=== PATIENT | male | born 1960 | race Caucasian/White ===

== ENCOUNTER 2020-03-01 01:01 | Emergency (ER) | payer OTHER ==
--- NOTE | 2020-03-01 01:43 | EDPHYS ---
Physician Documentation [facility] Name: Janell Dvaila IV Age: 59 yrs Sex: Male : 1960 Arrival Date: 03/01/2020 Time: 01:03 Bed 13 Private MD: ED Physician Jose Luna HPI: 03/01 01:40 This 59 yrs old Male presents to ER via Ambulatory with complaints of ma2 Toothache. 01:40 The patient presents with broken tooth/teeth. Onset: The symptoms/episode ma2 began/occurred gradually, 2 day(s) ago. Associated signs and symptoms: Pertinent negatives: dysphagia, inability to eat, swelling, vomiting. Severity of symptoms: At their worst the symptoms were mild, in the emergency department the symptoms are unchanged. The patient has not experienced similar symptoms in the past. Historical: - Allergies: 01:16 No Known Allergies; sg - Home Meds: 01:16 None [Active]; sg - PMHx: 01:16 None; sg - PSHx: 01:16 Heel Spur Sx to R foot; Shoulder Sx Bilateral; sg - Immunization history:: Adult Immunizations up to date. - Social history:: Smoking status: Patient denies any tobacco usage or history of. Patient/guardian denies using alcohol, street drugs, The patient lives with spouse. - Family history:: not pertinent. ROS: 01:40 Constitutional: Negative for fever, chills, and weight loss. ma2 01:40 All other systems are negative. Exam: 01:40 Constitutional: This is a well developed, well nourished patient who is awake, alert, ma2 and in no acute distress. Head/Face: Normocephalic, atraumatic. Eyes: Pupils equal round and reactive to light, extra-ocular motions intact. Lids and lashes normal. Conjunctiva and sclera are non-icteric and not injected. Cornea within normal limits. Periorbital areas with no swelling, redness, or edema. ENT: right 2nd molar lower teeth is partially broken, gum around is red, no abscess, Nares patent. No nasal discharge, no septal abnormalities noted. Tympanic membranes are normal and external auditory canals are clear. Oropharynx with no redness, swelling, or masses, exudates, or evidence of obstruction, uvula midline. Mucous membranes moist. Neck: Trachea midline, no thyromegaly or masses palpated, and no cervical lymphadenopathy. Supple, full range of motion without nuchal rigidity, or vertebral point tenderness. No Meningismus. Chest/axilla: Normal chest wall appearance and motion. Nontender with no deformity. No lesions are appreciated. Cardiovascular: Regular rate and rhythm with a normal S1 and S2. No gallops, murmurs, or rubs. Normal PMI, no JVD. No pulse deficits. Respiratory: Lungs have equal breath sounds bilaterally, clear to auscultation and percussion. No rales, rhonchi or wheezes noted. No increased work of breathing, no retractions or nasal flaring. Abdomen/GI: Soft, non-tender, with normal bowel sounds. No distension or tympany. No guarding or rebound. No evidence of tenderness throughout. Vital Signs: 01:06 Weight 121.11 kg; Height 6 ft. 0 in. (182.88 cm); sg 01:16 BP 151 / 82; Pulse 57; Resp 18 S; Temp 98.7(TE); Pulse Ox 97% on R/A; jd3 01:06 Body Mass Index 36.21 (121.11 kg, 182.88 cm) sg MDM: 01:33 Patient medically screened. ma2 01:40 Differential diagnosis: dental caries, gingivitis, dental abscess, pericoronitis, ma2 aphthous ulcers, gingivostomatitis. Data reviewed: vital signs, nurses notes. Counseling: I had a detailed discussion with the patient and/or guardian regarding: the historical points, exam findings, and any diagnostic results supporting the discharge/admit diagnosis, the presence of at least one elevated blood pressure reading (>120/80) during this emergency department visit, the need for outpatient follow up. Response to treatment: the patient's symptoms have markedly improved after treatment. Administered Medications: 01:49 Drug: TORadol 60 mg Route: IM; Site: right gluteus; jd3 02:06 Follow up: Response: No adverse reaction jd3 01:49 Drug: Augmentin 875 mg Route: PO; jd3 02:06 Follow up: Response: No adverse reaction jd3 Disposition: 03/01/20 01:42 Discharged to Home. Impression: Dental caries. - Condition is Stable. - Discharge Instructions: Dental Pain. - Prescriptions for Augmentin 875- 125 mg Oral Tablet - take 1 tablet by ORAL route every 12 hours for 10 days; 20 tablet. Diclofenac Sodium 75 mg Oral Tablet Sustained Release - take 1 tablet by ORAL route 2 times per day; 30 tablet. - Medication Reconciliation Form, Thank You Letter, Antibiotic Education, Prescription Opioid Use form. - Follow up: Private Physician; When: Tomorrow; Reason: Recheck today's complaints, Continuance of care. Signatures: Zachery Farrell RN RN sg Davies, Jonathon, RN RN jd3 Jose Luna MD MD ma2 Corrections: (The following items were deleted from the chart) 02:06 01:42 03/01/2020 01:42 Discharged to Home. Impression: Dental caries. Condition is jd3 Stable. Forms are Medication Reconciliation Form, Thank You Letter, Antibiotic Education, Prescription Opioid Use. Follow up: Private Physician; When: Tomorrow; Reason: Recheck today's complaints, Continuance of care. ma2
--- NOTE | 2020-03-01 01:43 | ER ---
Nurse's Notes [facility] Name: Janell Davila IV Age: 59 yrs Sex: Male : 1960 Arrival Date: 03/01/2020 Time: 01:03 Bed 13 Private MD: Diagnosis: Dental caries Presentation: 03/01 01:06 Acuity: LEONIE 5 sg 01:06 Chief complaint: Patient states: Toothache on the body right lower jaw, reports has sg been seen by his dentist but was referred to a new dentist with an appointment on Monday, however the pain is too severe at this time. Coronavirus screen: Proceed with normal triage. Ebola Screen: Patient negative for fever greater than or equal to 101.5 degrees Fahrenheit, and additional compatible Ebola Virus Disease symptoms Patient denies exposure to infectious person. Patient denies travel to an Ebola-affected area in the 21 days before illness onset. No symptoms or risks identified at this time. Initial Sepsis Screen: Does the patient meet any 2 criteria? No. Patient's initial sepsis screen is negative. Does the patient have a suspected source of infection? No. Patient's initial sepsis screen is negative. Risk Assessment: Do you want to hurt yourself or someone else? Patient reports no desire to harm self or others. Onset of symptoms was March 01, 2020. Care prior to arrival: None. Transition of care: patient was not received from another setting of care. 01:06 Method Of Arrival: Ambulatory sg Historical: - Allergies: 01:16 No Known Allergies; sg - Home Meds: 01:16 None [Active]; sg - PMHx: 01:16 None; sg - PSHx: 01:16 Heel Spur Sx to R foot; Shoulder Sx Bilateral; sg - Immunization history:: Adult Immunizations up to date. - Social history:: Smoking status: Patient denies any tobacco usage or history of. Patient/guardian denies using alcohol, street drugs, The patient lives with spouse. - Family history:: not pertinent. Screenin:15 Abuse screen: Denies threats or abuse. Nutritional screening: No deficits noted. jd3 Tuberculosis screening: No symptoms or risk factors identified. Fall Risk None identified. Assessment: 01:13 General: Appears in no apparent distress. uncomfortable, Behavior is calm, cooperative, jd3 appropriate for age. Pain: Complains of pain in right side of mouth Quality of pain is described as aching, shooting. Neuro: Level of Consciousness is awake, alert, obeys commands, Oriented to person, place, time, situation. Cardiovascular: Denies chest pain, Capillary refill < 3 seconds Patient's skin is warm and dry. Respiratory: Airway is patent Respiratory effort is even, unlabored, Respiratory pattern is regular, symmetrical, Denies cough, shortness of breath. GI: No signs and/or symptoms were reported involving the gastrointestinal system. : No signs and/or symptoms were reported regarding the genitourinary system. EENT: Oral mucosa is moist. chipped tooth noted to the lower right side of mouth. Derm: Skin is intact, Skin is dry, Skin is normal, Skin temperature is warm. Musculoskeletal: Circulation, motion, and sensation intact. Range of motion: intact in all extremities. 02:03 Reassessment: Patient appears in no apparent distress at this time. Patient and/or jd3 family updated on plan of care and expected duration. Pain level reassessed. Patient is alert, oriented x 3, equal unlabored respirations, skin warm/dry/pink. Patient states feeling better. Vital Signs: 01:06 Weight 121.11 kg; Height 6 ft. 0 in. (182.88 cm); sg 01:16 BP 151 / 82; Pulse 57; Resp 18 S; Temp 98.7(TE); Pulse Ox 97% on R/A; jd3 01:06 Body Mass Index 36.21 (121.11 kg, 182.88 cm) ED Course: 01:03 Patient arrived in ED. cf2 01:06 Triage completed. sg 01:06 Arm band placed on. sg 01:13 Aristeo Hernandez, PATRICIA is Primary Nurse. jd3 01:15 Patient has correct armband on for positive identification. Bed in low position. Call jd3 light in reach. Side rails up X 1. Pulse ox on. NIBP on. 01:33 Jose Luna MD is Attending Physician. ma2 02:05 No provider procedures requiring assistance completed. Patient did not have IV access jd3 during this emergency room visit. Administered Medications: 01:49 Drug: TORadol 60 mg Route: IM; Site: right gluteus; jd3 02:06 Follow up: Response: No adverse reaction jd3 01:49 Drug: Augmentin 875 mg Route: PO; jd3 02:06 Follow up: Response: No adverse reaction jd3 Outcome: 01:42 Discharge ordered by . rj 02:05 Discharged to home ambulatory. jd3 02:05 Condition: stable 02:05 Discharge instructions given to patient, Instructed on discharge instructions, follow up and referral plans. medication usage, Demonstrated understanding of instructions, follow-up care, medications, Prescriptions given X 2. 02:06 Patient left the ED. jd3 Signatures: Zachery Farrell RN RN Aristeo Esteban RN RN jd3 Alzahri, Mohammad, MD MD ma2 Yazan Molina 2
[2020-03-01] MEDS ORDERED: AMOX/K CLAV 875 MG TAB ONE (01:52)
[2020-03-01] MEDS ORDERED: KETOROLAC 30 MG/ML INJ ONE (01:52)
[2020-03-01 02:14] VITALS: BP 151/82; TEMP 98.7; O2SAT 97
== END 2020-03-01 02:06 | disposition home or self-care (01) ==
LOC: ER 01:01
DX: K02.9 Dental caries, unspecified (principal)
CPT/HCPCS: 96372; 99283

== ENCOUNTER 2021-11-29 08:02 | Day surgery (SDC) | payer OTHER ==
[2021-11-22 09:53] LABS: Absolute Lymphocytes (CBC) 1.6 K/uL (0.7-4.9); Hematocrit 42.1 % (39.6-49.0); MPV 7.4 fL (7.6-11.3); RBC Red Blood Cell Count 5.09 M/uL (4.33-5.43)
[2021-11-22 10:12] LABS: BUN Blood Urea Nitrogen 13 mg/dL (7-18); Bicarbonate 30 mmol/L (21-32); Glucose Level 109 mg/dL (74-106); Sodium Level 139 mmol/L (136-145)
--- NOTE | 2021-11-22 10:18 | RAD REPORT ---
EXAM DESCRIPTION: Elsi Mcdaniel (2 Views)11/22/2021 9:49 am CLINICAL HISTORY: Preop for gallbladder surgery. Hypertension COMPARISON: 2009 FINDINGS: The lungs appear clear of acute infiltrate. The heart is normal size IMPRESSION: No acute abnormalities displayed
[2021-11-29] MEDS ORDERED: CEFOXITIN SODIUM 1 GM/VIAL ONE (08:20)
[2021-11-29] MEDS ORDERED: Ringers Lactate 1,000 ML IV ONE (08:20)
[2021-11-29] MEDS ORDERED: BUPIVACAINE 0.5% PF 10 ML VIAL ONE (08:27)
[2021-11-29] MEDS ORDERED: BUPIVACAINE 0.5% PF 10 ML VIAL SQ ONE ×2 (08:44)
[2021-11-29] MEDS ORDERED: ROCURONIUM 50 MG/5 ML VIAL IV ONE (08:58)
[2021-11-29] MEDS ORDERED: propofoL 200 MG/20 ML VIAL IV ONE (08:58)
[2021-11-29] MEDS ORDERED: LIDOCAINE 1% MPF 5 ML VIAL ONE (08:58)
[2021-11-29] MEDS ORDERED: MIDAZOLAM HCL 2 MG/2 ML INJ ONE (08:58)
[2021-11-29] MEDS ORDERED: FENTANYL CITR 100 MCG/2 ML ONE ×2 (08:58→09:45)
[2021-11-29] MEDS ORDERED: SCOPOLAMINE HYDROBROMIDE PATCH TD ONE (09:01)
[2021-11-29] MEDS ORDERED: NS 0.9% VIAL 10 ML ONE (09:06)
[2021-11-29] MEDS ORDERED: KETOROLAC 30 MG/ML INJ ONE (09:24)
[2021-11-29] MEDS ORDERED: dexAMETHasone 10 MG/ML VIAL ONE (09:24)
[2021-11-29] MEDS ORDERED: GLYCOPYRROLATE 0.2 MG/ML SYR ONE (09:32)
[2021-11-29] MEDS ORDERED: ONDANSETRON 4 MG/2 ML VIAL ONE (09:32)
[2021-11-29] MEDS ORDERED: NEOSTIGMINE 1 MG/ML -5 ML ONE (09:33)
[2021-11-29] MEDS ORDERED: Mastisol Adhesive Liq ONE (09:54)
--- NOTE | 2021-11-29 10:06 | P.OP ---
Independent Living Instructor: Enrique PINEDA Preoperative diagnosis: Biliary colic and gallbladder polyps Postoperative diagnosis: Same with chronic cholecystitis and extensive adhesions Primary procedure: Laparoscopic cholecystectomy Secondary procedure: Laparoscopic lysis of adhesions Anesthesia: General Estimated blood loss: Minimal Specimen: Gallbladder Operative Technique: Patient brought to the OR and placed in the supine position. Patient prepped draped in the usual sterile fashion. Marcaine 0.5% infiltrated locally. 15 blade used to make a 1 cm supraumbilical midline incision. Subcutaneous tissue divided and fascia identified and divided. #1 Vicryl stay suture placed. Peritoneal cavity entered with sharp and blunt dissection. 12 mm trocar placed into the peritoneal cavity under direct vision. Pneumoperitoneum established. 5 mm trocar placed in the epigastric region just to the right of midline. 2 5 mm trochars placed in the right subcostal region under direct vision. Laparoscopy revealed extensive adhesions to the liver and the gallbladder. LigaSure used to lyse the omental adhesions to the liver and the gallbladder. Fundus of the gallbladder identified and retracted superiorly. Infundibulum identified and retracted inferolaterally. Cystic duct cystic artery clearly identified with blunt dissection. Clips placed in both structures divided. Cautery used to remove the gallbladder from the liver bed. Bleeding on the liver bed controlled with cautery. Gallbladder retrieved through the umbilicus via Endo Catch bag. Right upper quadrant examined and no evidence of bleeding or bile leakage appreciated. Subsequently, all trochars removed under direct vision. Stay sutures tied to each other to reapproximate the fascial defect. Subcutaneous wounds irrigated bleeding controlled with cautery. 3-0 chromic used to close subcutaneous tissue and 4-0 Monocryl used to close skin. Sterile dressing applied. Patient awakened and taken to recovery in good general condition. Complications: None Transferred to: Recovery Room Condition: Good
[2021-11-29] MEDS ORDERED: HYDROCODONE/APAP 7.5/325 MG TAB PO PRN (10:08)
[2021-11-29] MEDS: HYDROMORPHONE HCL 1 MG/ML INJ ONE ×4 (10:22→10:42)
[2021-11-29 10:40] VITALS: O2SAT 96
[2021-11-29 12:06] VITALS: BP 143/90; TEMP 96.5
== END 2021-11-29 11:51 | disposition home or self-care (01) ==
LOC: OR 08:02
PROVIDERS: ATTEND Surgery
PROC: 0FT44ZZ Resection of Gallbladder, Percutaneous Endoscopic Approach (ICD-10-PCS; principal; 2021-11-29 09:00)
DX: K80.50 Calculus of bile duct without cholangitis or cholecystitis without obstruction (principal); K82.4 Cholesterolosis of gallbladder; Z20.822 Contact with and (suspected) exposure to COVID-19; I10 Essential (primary) hypertension
CPT/HCPCS: 93005; 85025; 80048; 36415; 88304; 71046; 47562; U0002; J2704; J2250; J3010 ×2; J1100; J1170 ×2; J2710; J7120; J0694; J2405

== ENCOUNTER 2024-06-27 11:27 | Emergency (ER) | payer OTHER ==
--- NOTE | 2024-06-27 12:13 | RAD REPORT ---
EXAMINATION: US RIGHT LOWER EXTREMITY VENOUS DOPPLER CLINICAL INDICATION: PAIN RIGHT TECHNIQUE: Complete bilateral duplex sonography of the RIGHT lower extremity veins was performed. The examination included compression for vein patency, color Doppler imaging and flow augmentation in response to distal compression of the distal external iliac, common femoral, femoral, popliteal, tibi al, and great and small saphenous veins. COMPARISON: No prior exam. FINDINGS: Duplex sonography testing of the veins of the RIGHT lower extremity was performed. Color flow imaging shows all veins to be compressible with [id number] color filling. Pulsatile and phasic flow is present within all lower extremity deep and superficial veins examined. IMPRESSION: There is no deep vein or superficial vein thrombosis.
--- NOTE | 2024-06-27 12:14 | RAD REPORT ---
EXAMINATION: ONE VIEW CHEST XR CLINICAL INDICATION: COUGH TECHNIQUE: Frontal chest projection is submitted. Examination is limited by patient positioning and t echnique. COMPARISON: 11/22/2021 FINDINGS: The lungs are well inflated and clear. The heart is upper limit of normal in size. No displaced fract ures identified. IMPRESSION: No acute intrathoracic abnormalities.
[2024-06-27 12:56] LABS: Absolute Eosinophils 0.1 K/uL (0-0.5); Absolute Lymphocytes (CBC) 2.1 K/uL (0.7-4.9); Absolute Monocytes 0.6 K/uL (0.1-1.3); Absolute Neutrophil 3.9 K/uL (1.8-8.0); Basophils % 0.2 % (0-1.3); Eosinophils % 2.2 % (0-4.4); Hematocrit 42.5 % (39.6-49.0); Hemoglobin 14.3 g/dL (13.6-17.9); Lymphocytes % 31.5 % (15.3-44.8); MCH 28.2 pg (27.0-35.0); MCHC 33.7 g/dL (32.0-36.0); MCV 83.9 fL (80-100); MPV 7.5 fL (7.6-11.3); Monocytes % 8.4 % (3.3-12.3); Neutrophils % 57.7 % (41.7-73.7); Platelets 267 thou/uL (152-406); RBC Red Blood Cell Count 5.07 M/uL (4.33-5.43)
[2024-06-27 12:57] LABS: Specific Gravity 1.024 (1.005-1.030); Urine Bilirubin NEGATIVE (Negative); Urine Blood Negative (Negative); Urine Clarity Clear (Clear); Urine Color Light-Yellow (Yellow); Urine Glucose NEGATIVE (Negative); Urine Ketones NEGATIVE (Negative); Urine Microscopic Reflex YN NO UMIC; Urine Nitrite NEGATIVE (Negative); Urine Protein NEGATIVE (Negative); Urine Urobilinogen Normal (Normal); Urine pH 6.5 (5.0-7.0)
[2024-06-27 13:00] LABS: PT Prothrombin Time 11.4 SECONDS (9.4-12.5); Protime INR 1.02
[2024-06-27 13:20] LABS: ALT/SGPT 22 U/L (16-61); AST/SGOT 15 U/L (15-37); Albumin 3.4 g/dL (3.4-5.0); Albumin/Globulin Ratio 0.9 (1.1-1.8); Alkaline Phosphatase 100 U/L (45-117); Anion Gap 8.8 mEq/L (5.0-15.0); BUN Blood Urea Nitrogen 18 mg/dL (7-18); Bicarbonate 30 mEq/L (21-32); Bilirubin Total 0.4 mg/dL (0.2-1.0); Globulin 3.9 g/dL (2.3-3.5); Glomerular Filtration Rate 100 ml/min (=/>90); Glucose Level 98 mg/dL (74-106); Magnesium 2.1 mg/dL (1.6-2.4); NT PRO-BNP 53 pg/mL (<125); Potassium 3.8 mEq/L (3.5-5.1); Protein, Total 7.3 g/dL (6.4-8.2); Sodium Level 140 mEq/L (136-145); Troponin High Sensitivity 5.4 pg/mL (<58.9)
[2024-06-27 13:22] LABS: Bilirubin Direct < 0.2 mg/dL (0-0.2); Bilirubin Indirect, Calculated 0.2 mg/dL (0.2-0.8)
--- NOTE | 2024-06-27 14:30 | RAD REPORT ---
EXAM: CT Chest For Pe Angio TECHNIQUE: CT angiogram of the chest was performed following intravenous contrast administration, inc luding sagittal and coronal as well as maximum intensity projection reformats. One or more of the following dose reduction techniques were used: Automated exposure control, adjustment of the mA and k V according to patient size, and iterative reconstruction. Unless otherwise specified, incidental findings do not require dedicated imaging follow-up. INDICATION: DYSPNEA COMPARISON: Chest radiograph of earlier the same day. FINDINGS: LINES/TUBES: None. PULMONARY ARTERIES: Main pulmonary arteries are normal in caliber. No filling defects within the pul monary arteries to suggest pulmonary embolus. LUNGS AND AIRWAYS: The lungs and central airways are normal without focal abnormality. PLEURA: No effusion or pneumothorax. HEART AND MEDIASTINUM: The visualized thyroid gland is normal. No mediastinal, hilar, or axillary lym phadenopathy. Heart is unremarkable. No pericardial effusion. SOFT TISSUES AND BONES: No acute osseous abnormality. No significant soft tissue finding. UPPER ABDOMEN: Status post cholecystectomy. IMPRESSION: No evidence of acute central pulmonary emboli. No suspicious intrathoracic findings..
--- NOTE | 2024-06-27 14:36 | ER ---
Nurse's Notes [facility] Name: Janell Davila IV Age: 64 yrs Sex: Male : 1960 Arrival Date: 06/27/2024 Time: 11:27 Bed 19 Private MD: Diagnosis: Acute embolism and thrombosis of other specified deep vein of left lower extremity-POPLITEAL/ LEFT CALF Presentation: 06/27 11:48 Note PATIENT NOT AVAILABLE FOR TRIAGE. SEEN BY REGISTRATION GOING TO ULTRASOUND. db 12:16 Chief complaint: Patient states: PATIENT WAS TOLD TO GET A ULTRASOUND FOR LEFT LEG PAIN db AND SWELLING. STATES WAS DIAGNOSED WITH BLOOD CLOTS IN LEG AND WAS TOLD TO COME TO ED. Coronavirus screen: Client denies travel out of the [place] in the last 14 days. At this time, the client does not indicate any symptoms associated with coronavirus-19. Ebola Screen: Patient negative for fever greater than or equal to 101.5 degrees Fahrenheit, and additional compatible Ebola Virus Disease symptoms Patient denies exposure to infectious person. Patient denies travel to an Ebola-affected area in the 21 days before illness onset. No symptoms or risks identified at this time. Initial Sepsis Screen: Does the patient meet any 2 criteria? No. Patient's initial sepsis screen is negative. Does the patient have a suspected source of infection? No. Patient's initial sepsis screen is negative. Risk Assessment: Do you want to hurt yourself or someone else? Patient reports no desire to harm self or others. Onset of symptoms was June 27, 2024. 12:16 Method Of Arrival: Wheelchair db 12:16 Acuity: LEONIE 3 db Triage Assessment: 12:18 General: Appears in no apparent distress. comfortable, Behavior is calm, cooperative. db Pain: Complains of pain in left leg. Neuro: Level of Consciousness is awake, alert, obeys commands, Oriented to person, place, time, situation. Respiratory: Airway is patent Respiratory effort is even, unlabored. Historical: - Allergies: 12:18 Lisinopril; db - PMHx: 12:18 GERD; Hypertensive disorder; db - PSHx: 12:18 Cholecystectomy; inguinal hernia repair; right ankle sx; db - Immunization history:: Adult Immunizations unknown. - Infectious Disease History:: Denies. - Social history:: Smoking status: Patient denies any tobacco usage or history of. - Family history:: not pertinent. Screenin:53 [facility] ED Fall Risk Assessment (Adult) History of falling in the last 3 months, kc6 including since admission No falls in past 3 months (0 pts) Confusion or Disorientation No (0 pts) Intoxicated or Sedated No (0 pts) Impaired Gait No (0 pts) Mobility Assist Device Used No (0 pt) Altered Elimination No (0 pt) Score/Fall Risk Level 0 - 2 = Low Risk Oriented to surroundings. Abuse screen: Denies threats or abuse. Denies injuries from another. Nutritional screening: No deficits noted. Tuberculosis screening: No symptoms or risk factors identified. Assessment: 12:53 General: Appears in no apparent distress. comfortable, well groomed, well developed, kc6 Behavior is calm, cooperative, appropriate for age. Pain: Complains of pain in left foot. Neuro: Level of Consciousness is awake, alert, obeys commands, Oriented to person, place, time, situation, Appropriate for age. Cardiovascular: Denies chest pain, shortness of breath, Capillary refill < 3 seconds Pulses are all present. Respiratory: Airway is patent Trachea midline Respiratory effort is even, unlabored, Respiratory pattern is regular, symmetrical. GI: No signs and/or symptoms were reported involving the gastrointestinal system. : No signs and/or symptoms were reported regarding the genitourinary system. EENT: No signs and/or symptoms were reported regarding the EENT system. Derm: No signs and/or symptoms reported regarding the dermatologic system. Skin is intact, is healthy with good turgor, Skin is pink, warm \T\ dry. Musculoskeletal: Circulation, motion, and sensation intact. Capillary refill < 3 seconds, Range of motion: intact in all extremities, Swelling present in left foot. 14:01 Reassessment: Patient appears in no apparent distress at this time. No changes from kc6 previously documented assessment. Patient and/or family updated on plan of care and expected duration. Pain level reassessed. Patient is alert, oriented x 3, equal unlabored respirations, skin warm/dry/pink. 15:11 Reassessment: Patient appears in no apparent distress at this time. No changes from kc6 previously documented assessment. Patient and/or family updated on plan of care and expected duration. Pain level reassessed. Patient is alert, oriented x 3, equal unlabored respirations, skin warm/dry/pink. Vital Signs: 12:16 BP 142 / 94; Pulse 72; Resp 18; Temp 98.5; Pulse Ox 97% ; Weight 122.47 kg; Height 6 db ft. 0 in. ; Pain 2/10; 12:53 BP 141 / 92; Pulse 66; Resp 16 S; Pulse Ox 98% on R/A; kc6 14:01 BP 142 / 82; Pulse 70; Resp 18 S; Pulse Ox 97% on R/A; kc6 12:16 Body Mass Index 36.62 (122.47 kg, 182.88 cm) db 12:16 Pain Scale: Adult db ED Course: 11:29 Patient arrived in ED. mr 11:33 Naveen Alvarado MD is Attending Physician. adelso 11:40 Patient taken to ultrasound. db 11:50 US Extremity Venous Unilateral Ltd In Process Unspecified. EDMS 12:05 XRAY Chest (1 view) In Process Unspecified. EDMS 12:18 Triage completed. db 12:20 Arm band placed on right wrist. Patient placed in an exam room. db 12:24 Sydney Atkins, RN is Primary Nurse. kc6 12:52 Inserted saline lock: 20 gauge in right antecubital area, using aseptic technique. kc6 Blood collected. Flushed with 10 mL NS. Patient maintains SpO2 saturation greater than 95% on room air. 12:53 Patient has correct armband on for positive identification. Placed in gown. Bed in low kc6 position. Call light in reach. Side rails up X2. Adult w/ patient. vehicle monitor technician on. Pulse ox on. NIBP on. Door closed. Noise minimized. Lights dimmed. Pillow given. 13:37 CT Chest For PE Angio In Process Unspecified. EDMS 14:34 Jamie Sewell MD is Referral Physician. adelso 15:11 No provider procedures requiring assistance completed. IV discontinued, intact, kc6 bleeding controlled, No redness/swelling at site. Pressure dressing applied. Administered Medications: 15:11 Drug: Eliquis PO 10 mg PO once Route: PO; kc6 15:11 Follow up: Response: No adverse reaction kc6 Medication: 15:12 VIS not applicable for this client. kc6 Outcome: 14:35 Discharge ordered by . adelso 15:11 Discharged to home ambulatory, with significant other, kc6 15:11 Condition: good 15:11 Discharge instructions given to patient, significant other, Instructed on discharge instructions, follow up and referral plans. medication usage, Demonstrated understanding of instructions, follow-up care, medications, Prescriptions given X 1, 15:12 Patient left the ED. kc6 Signatures: Dispatcher [employer] EDMS Naveen Alvarado MD MD cha Rivera, Ivy, Reg Reg mr Sydney Atkins RN RN kc6 Valarie Bazan RN RN db Corrections: (The following items were deleted from the chart) 14:04 14:01 Pulse 70bpm; Resp 18bpm; Spontaneous; Pulse Ox 97% RA; kc6 kc6
--- NOTE | 2024-06-27 14:36 | EDPHYS ---
Physician Documentation [facility] Name: Janell Davila IV Age: 64 yrs Sex: Male : 1960 Arrival Date: 06/27/2024 Time: 11:27 Bed 19 Private MD: ED Physician Naveen Alvarado HPI: 06/27 14:24 This 64 yrs old Male presents to ER via Wheelchair with complaints of Blood adelso Clot. 14:24 The patient presents with decreased range of motion, pain, swelling, tenderness. The adelso complaints affect the lateral aspect of left calf, posterior aspect of left knee, left calf, medial aspect of left knee, medial aspect of left calf, left knee and left frank. Context: The problem was sustained at an unknown site. Onset: The symptoms/episode began/occurred 5 day(s) ago. Modifying factors: The symptoms are alleviated by nothing. the symptoms are aggravated by nothing. Associated signs and symptoms: The patient has no apparent associated signs or symptoms. Severity of symptoms: At their worst the symptoms were moderate, in the emergency department the symptoms are unchanged. The patient has not experienced similar symptoms in the past. Historical: - Allergies: 12:18 Lisinopril; db - PMHx: 12:18 GERD; Hypertensive disorder; db - PSHx: 12:18 Cholecystectomy; inguinal hernia repair; right ankle sx; db - Immunization history:: Adult Immunizations unknown. - Infectious Disease History:: Denies. - Social history:: Smoking status: Patient denies any tobacco usage or history of. - Family history:: not pertinent. ROS: 14:24 Constitutional: Negative for fever, chills, and weight loss, Eyes: Negative for injury, adelso pain, redness, and discharge, ENT: Negative for injury, pain, and discharge, Neck: Negative for injury, pain, and swelling, Cardiovascular: Negative for chest pain, palpitations, and edema, Respiratory: Negative for shortness of breath, cough, wheezing, and pleuritic chest pain, Abdomen/GI: Negative for abdominal pain, nausea, vomiting, diarrhea, and constipation, Back: Negative for injury and pain, : Negative for injury, bleeding, discharge, and swelling, Skin: Negative for injury, rash, and discoloration, Neuro: Negative for headache, weakness, numbness, tingling, and seizure, Psych: Negative for depression, anxiety, suicide ideation, homicidal ideation, and hallucinations, Allergy/Immunology: Negative for hives, rash, and allergies, Endocrine: Negative for neck swelling, polydipsia, polyuria, polyphagia, and marked weight changes, Hematologic/Lymphatic: Negative for swollen nodes, abnormal bleeding, and unusual bruising, 14:24 MS/extremity: Positive for pain, swelling, tenderness, of the left leg, Exam: 14:24 Constitutional: This is a well developed, well nourished patient who is awake, alert, adelso and in no acute distress. Head/Face: Normocephalic, atraumatic. Eyes: Pupils equal round and reactive to light, extra-ocular motions intact. Lids and lashes normal. Conjunctiva and sclera are non-icteric and not injected. Cornea within normal limits. Periorbital areas with no swelling, redness, or edema. ENT: Nares patent. No nasal discharge, no septal abnormalities noted. Tympanic membranes are normal and external auditory canals are clear. Oropharynx with no redness, swelling, or masses, exudates, or evidence of obstruction, uvula midline. Mucous membranes moist. Neck: Trachea midline, no thyromegaly or masses palpated, and no cervical lymphadenopathy. Supple, full range of motion without nuchal rigidity, or vertebral point tenderness. No Meningismus. Chest/axilla: Normal chest wall appearance and motion. Nontender with no deformity. No lesions are appreciated. Cardiovascular: Regular rate and rhythm with a normal S1 and S2. No gallops, murmurs, or rubs. Normal PMI, no JVD. No pulse deficits. Respiratory: Lungs have equal breath sounds bilaterally, clear to auscultation and percussion. No rales, rhonchi or wheezes noted. No increased work of breathing, no retractions or nasal flaring. Abdomen/GI: Soft, non-tender, with normal bowel sounds. No distension or tympany. No guarding or rebound. No evidence of tenderness throughout. Back: No spinal tenderness. No costovertebral tenderness. Full range of motion. Male : Normal genitalia with no discharge or lesions. Skin: Warm, dry with normal turgor. Normal color with no rashes, no lesions, and no evidence of cellulitis. Neuro: Awake and alert, GCS 15, oriented to person, place, time, and situation. Cranial nerves II-XII grossly intact. Motor strength 5/5 in all extremities. Sensory grossly intact. Cerebellar exam normal. Normal gait. Psych: Awake, alert, with orientation to person, place and time. Behavior, mood, and affect are within normal limits. 14:24 Musculoskeletal/extremity: ROM: no acute changes, intact in all extremities, full active range of motion, full passive range of motion, Circulation is intact in all extremities. Sensation intact. Compartment Syndrome exam of affected extremity: is normal. Weight bearing: able to fully bear weight, DVT Exam: negative Homans' sign noted on exam, no appreciated bluish discoloration, no erythema, no increased warmth, pain, swelling, tenderness, 14:27 ECG was reviewed by the Attending Physician. [facility] Vital Signs: 12:16 BP 142 / 94; Pulse 72; Resp 18; Temp 98.5; Pulse Ox 97% ; Weight 122.47 kg; Height 6 db ft. 0 in. ; Pain 2/10; 12:53 BP 141 / 92; Pulse 66; Resp 16 S; Pulse Ox 98% on R/A; kc6 14:01 BP 142 / 82; Pulse 70; Resp 18 S; Pulse Ox 97% on R/A; kc6 12:16 Body Mass Index 36.62 (122.47 kg, 182.88 cm) db 12:16 Pain Scale: Adult db MDM: 11:33 Medical Screening Exam initiated [facility] 12:17 Medical Screening Exam initiated [facility] 14:26 Differential diagnosis: closed fracture, contusion, abrasion, tendonitis. Data [facility] reviewed: vital signs, nurses notes, lab test result(s), EKG, radiologic studies, CT scan, doppler, plain films. Consideration of Admission/Observation Escalation of care including admission/observation considered. I considered the following discharge prescriptions or medication management in the emergency department Medications were administered in the Emergency Department. See MAR. Independent interpretation of the following test(s) in the Emergency Department EKG: See my EKG interpretation above. Test considered but Not performed: MRI: NO MRI NEEDED. 06/27 11:36 Order name: Basic Metabolic Panel; Complete Time: 14:13 [facility] 06/27 11:36 Order name: CBC with Diff; Complete Time: 14:13 [facility] 06/27 11:36 Order name: LFT's; Complete Time: 14:13 06/27 11:36 Order name: Magnesium; Complete Time: 14:13 06/27 11:36 Order name: NT PRO-BNP; Complete Time: 14:13 [facility] 06/27 11:36 Order name: PT-INR; Complete Time: 14:13 06/27 11:36 Order name: Troponin HS; Complete Time: 14:13 06/27 11:36 Order name: Urinalysis w/ reflexes; Complete Time: 14:13 [facility] 06/27 11:36 Order name: XRAY Chest (1 view); Complete Time: 14:13 [place] 06/27 11:36 Order name: CT Chest For PE Angio 06/27 11:36 Order name: US Extremity Venous Unilateral Ltd; Complete Time: 14:13 [facility] 06/27 11:36 Order name: EKG; Complete Time: 11:37 [facility] 06/27 11:36 Order name: Cardiac monitoring; Complete Time: 12:52 [facility] 06/27 11:36 Order name: EKG - Nurse/Tech; Complete Time: 12:52 [facility] 06/27 11:36 Order name: IV Saline Lock; Complete Time: 12:52 [facility] 06/27 11:36 Order name: Labs collected and sent; Complete Time: 12:52 [facility] 06/27 11:36 Order name: O2 Per Protocol; Complete Time: 12:29 [facility] 06/27 11:36 Order name: O2 Sat Monitoring; Complete Time: 12:29 [facility] EC:27 Rate is 68 beats/min. Rhythm is regular. QRS [place] is Normal. [place] interval is normal. QRS [place]so interval is normal. QT interval is normal. No Q waves. T waves are Normal. No ST changes noted. Clinical impression: NSR w/ Non-specific ST/T Changes and No evidence of ischemia. Interpreted by me. Reviewed by me. Administered Medications: 15:11 Drug: Eliquis PO 10 mg PO once Route: PO; kc6 15:11 Follow up: Response: No adverse reaction kc6 Disposition Summary: 06/27/24 14:35 Discharge Ordered Notes: Location: Home adelso Problem: new adelso Symptoms: have improved adelso Condition: Stable adelso Diagnosis - Acute embolism and thrombosis of other specified deep vein of left lower extremity adelso - POPLITEAL/ LEFT CALF Followup: adelso - With: Private Physician - When: 2 - 3 days - Reason: Recheck today's complaints, Continuance of care, Re-evaluation by your physician Followup: adelso - With: Jamie Sewell MD - When: 5 - 6 days - Reason: Recheck today's complaints, Re-evaluation by your physician Discharge Instructions: - Discharge Summary Sheet adelso - Deep Vein Thrombosis [facility] Forms: - Medication Reconciliation Form adelso - Antibiotic Education adelso - Prescription Opioid Use adelso - Patient Portal Instructions [facility] - Leadership Thank You Letter [facility] Prescriptions: - Eliquis DVT-PE Treat 30D Start 5 mg (74 tabs) Oral Tablet, Dose Pack - take 1 tablet ORAL route every 12 hours 1O MG PO BID X 7 DAYS THE 5 MG PO BIB X adelso 3 MONTHS; 74 tablet; Refills: 0, Product Selection Permitted Signatures: Dispatcher [employer] EDNaveen Orourke MD MD cha Campbell, Kaitlyn, RN RN kc6 Valarie Bazan RN RN db Corrections: (The following items were deleted from the chart) 11:37 11:37 Extremity Venous Uni [email or web address] ordered. EDMS EDMS
[2024-06-27] MEDS ORDERED: APIXABAN 5 MG TABLET ONE (14:55)
[2024-06-27 20:06] VITALS: TEMP 98.5
[2024-06-27 20:08] VITALS: BP 142/82; O2SAT 97
--- NOTE | 2024-06-28 14:15 | EKG ---
Test Date: 2024-06-27 Test Time: 12:40:00 Integration Technician: ARI MEASUREMENT RESULTS: Intervals: Rate: 68 IL: 174 QRSD: 82 QT: 402 QTc: 427 [place]: P: 69 IL: 174 QRS: 50 T: 38 INTERPRETIVE STATEMENTS: Sinus rhythm with premature atrial complexes Low voltage QRS Borderline ECG Compared to ECG 11/22/2021 08:32:45 No significant changes Electronically Signed On 06-28-24 14:12:29 CDT by Philipp Garcia
== END 2024-06-27 15:12 | disposition home or self-care (01) ==
LOC: ER 11:27
DX: I82.432 Acute embolism and thrombosis of left popliteal vein (principal); I10 Essential (primary) hypertension
CPT/HCPCS: 93005; 85025; 80048; 36415; 83735; 85610; 80076; 81003; 84484; 83880; 71275; 71045; 93971; 99285; Q9967

== ENCOUNTER 2024-07-08 19:03 | Observation (INO) | payer OTHER ==
[2024-07-08 19:44] LABS: Absolute Eosinophils 0.1 K/uL (0-0.5); Absolute Lymphocytes (CBC) 2.6 K/uL (0.7-4.9); Absolute Monocytes 0.7 K/uL (0.1-1.3); Absolute Neutrophil 4.2 K/uL (1.8-8.0); Basophils % 0.4 % (0-1.3); Eosinophils % 1.5 % (0-4.4); Hematocrit 43.7 % (39.6-49.0); Hemoglobin 14.9 g/dL (13.6-17.9); Lymphocytes % 34.2 % (15.3-44.8); MCHC 34.1 g/dL (32.0-36.0); MCV 82.3 fL (80-100); MPV 7.4 fL (7.6-11.3); Monocytes % 9.3 % (3.3-12.3); Neutrophils % 54.6 % (41.7-73.7); Platelets 274 thou/uL (152-406); RBC Red Blood Cell Count 5.31 M/uL (4.33-5.43); Red Cell Distribution Width 13.9 % (12.1-15.2)
[2024-07-08 19:50] LABS: PT Prothrombin Time 13.3 SECONDS (9.4-12.5); Protime INR 1.19
--- NOTE | 2024-07-08 20:03 | RAD REPORT ---
Procedure: Chest Single View HISTORY: Chest pain COMPARISON: June 27, 2024 FINDINGS: The lungs appear clear of acute infiltrate. No significant pleural effusion noted. The heart is normal size. IMPRESSION: No acute abnormality is displayed.
[2024-07-08 20:10] LABS: ALT/SGPT 27 U/L (16-61); AST/SGOT 17 U/L (15-37); Albumin 3.5 g/dL (3.4-5.0); Albumin/Globulin Ratio 0.9 (1.1-1.8); Alkaline Phosphatase 102 U/L (45-117); Anion Gap 9.5 mEq/L (5.0-15.0); BUN Blood Urea Nitrogen 18 mg/dL (7-18); Bicarbonate 27 mEq/L (21-32); Bilirubin Total 0.4 mg/dL (0.2-1.0); Glomerular Filtration Rate 52 ml/min (=/>90); Glucose Level 141 mg/dL (74-106); Magnesium 2.1 mg/dL (1.6-2.4); NT PRO-BNP 28 pg/mL (<125); Potassium 3.5 mEq/L (3.5-5.1); Protein, Total 7.5 g/dL (6.4-8.2); Sodium Level 136 mEq/L (136-145); Troponin High Sensitivity 4.6 pg/mL (<58.9)
[2024-07-08 20:16] LABS: Bilirubin Direct < 0.2 mg/dL (0-0.2); Bilirubin Indirect, Calculated 0.2 mg/dL (0.2-0.8)
[2024-07-08] MEDS ORDERED: ASPIRIN 81 MG CHEWABLE TABLET ONE (20:54)
--- NOTE | 2024-07-08 21:13 | RAD REPORT ---
EXAMINATION: CTA CHEST PE CLINICAL INDICATION: Chest pain TECHNIQUE: 100 cc 370 Isovue administered intravenously. This examination was performed according to an angiographic protocol with 3D post-processing. This involves 3D reconstructions, MIPs, volume rendered images and/or shaded surface rendering. One or more of the following dose reduction techniqu es were used: Automated exposure control, adjustment of the mA and/or kV according to patient size, and/or iterative reconstruction. Unless otherwise specified, incidental findings do not require dedic ated imaging follow-up. [id number]. COMPARISON: June 2024 FINDINGS: A pulmonary embolus is not seen. An aortic aneurysm not noted. No pleural effusion. No pericardial effusion. Lungs are clear. IMPRESSION: No evidence of a pulmonary embolism
--- NOTE | 2024-07-08 21:34 | ER ---
Nurse's Notes [facility] Name: Janell Davila IV Age: 64 yrs Sex: Male : 1960 Arrival Date: 07/08/2024 Time: 19:03 Bed 5 Private MD: Diagnosis: Chest pain, unspecified Presentation: 07/08 19:18 Chief complaint: Patient states: Chest pain to the left side of his chest onset at cm10 approximately 1800. PT states that the pain radiates to back and describes the pain "like some one is pushing on my chest." pt diagnosed with DVT last week and is taking Eliquis. Coronavirus screen: Client denies travel out of the [place] in the last 14 days. Ebola Screen: Patient denies travel to an Ebola-affected area in the 21 days before illness onset. No symptoms or risks identified at this time. Initial Sepsis Screen: Does the patient meet any 2 criteria? No. Patient's initial sepsis screen is negative. Does the patient have a suspected source of infection? No. Patient's initial sepsis screen is negative. Risk Assessment: Do you want to hurt yourself or someone else? Patient reports no desire to harm self or others. Onset of symptoms was July 08, 2024. 19:18 Method Of Arrival: Ambulatory cm10 19:18 Acuity: LEONIE 2 cm10 Triage Assessment: 19:24 General: Appears in no apparent distress. comfortable, Behavior is calm, cooperative. cm10 Neuro: No deficits noted. Level of Consciousness is awake, alert, obeys commands, Oriented to person, place, time, situation, Appropriate for age. Respiratory: No deficits noted. Airway is patent Respiratory effort is even, unlabored, Respiratory pattern is regular, symmetrical. Historical: - Allergies: 19:21 Lisinopril; cm10 - Home Meds: 19:21 famotidine 20 mg oral tablet [Active]; hydrochlorothiazide 25 mg Oral tablet [Active]; cm10 aspirin 81 mg Oral tablet,chewable [Active]; colestipol 1 gram oral tablet [Active]; Eliquis 5 mg oral tablet [Active]; - PMHx: 19:21 GERD; Hypertensive disorder; DVT; cm10 - PSHx: 19:21 Cholecystectomy; inguinal hernia repair; right ankle sx; cm10 - Immunization history:: Adult Immunizations up to date. - Infectious Disease History:: Denies. - Social history:: Smoking status: Patient denies any tobacco usage or history of. Screenin:39 [facility] ED Fall Risk Assessment (Adult) History of falling in the last 3 months, lg3 including since admission No falls in past 3 months (0 pts) Confusion or Disorientation No (0 pts) Intoxicated or Sedated No (0 pts) Impaired Gait No (0 pts) Mobility Assist Device Used No (0 pt) Altered Elimination No (0 pt) Score/Fall Risk Level 0 - 2 = Low Risk Oriented to surroundings, Maintained a safe environment, Educated pt \\T\\ family on fall prevention, incl call for assistance when getting out of bed, Assessed \\T\\ reinforced patient's understanding of fall precautions. Abuse screen: Denies threats or abuse. Denies injuries from another. Nutritional screening: No deficits noted. Tuberculosis screening: No symptoms or risk factors identified. Assessment: 19:39 General: Appears in no apparent distress. comfortable, Behavior is calm, cooperative. lg3 Pain: Complains of pain in chest Pain radiates to back Pain currently is 2 out of 10 on a pain scale. Quality of pain is described as pressure, Pain began 3 hours ago. Neuro: No deficits noted. [place] Agitation-Sedation Scale (RASS): 0 - Alert and Calm Level of Consciousness is awake, alert, obeys commands, Oriented to person, place, time, situation. Cardiovascular: Reports chest pain, Denies shortness of breath, Heart tones S1 S2 present Capillary refill < 3 seconds Clubbing of nail beds is absent JVD is absent Patient's skin is warm and dry. Respiratory: No deficits noted. Airway is patent Respiratory effort is even, unlabored, Respiratory pattern is regular, symmetrical. GI: No deficits noted. No signs and/or symptoms were reported involving the gastrointestinal system. : No signs and/or symptoms were reported regarding the genitourinary system. EENT: No deficits noted. No signs and/or symptoms were reported regarding the EENT system. Derm: No deficits noted. No signs and/or symptoms reported regarding the dermatologic system. Skin is intact, is healthy with good turgor, Skin is dry, Skin is normal, Skin temperature is warm. Musculoskeletal: No deficits noted. No signs and/or symptoms reported regarding the musculoskeletal system. Circulation, motion, and sensation intact. Range of motion: intact in all extremities. 21:29 Reassessment: Patient appears in no apparent distress at this time. No changes from lg3 previously documented assessment. Patient and/or family updated on plan of care and expected duration. Pain level reassessed. Patient is alert, oriented x 3, equal unlabored respirations, skin warm/dry/pink. Vital Signs: 19:18 BP 137 / 91; Pulse 82; Resp 18; Temp 98.3(TE); Pulse Ox 96% on R/A; Weight 117.93 kg; cm10 Height 6 ft. 0 in. ; Pain 3/10; 21:29 BP 135 / 93; Pulse 73; Resp 16 S; Pulse Ox 97% on R/A; lg3 22:35 BP 134 / 88; Pulse 68; Resp 17 S; Pulse Ox 97% on R/A; lg3 19:18 Body Mass Index 35.26 (117.93 kg, 182.88 cm) cm10 19:18 Pain Scale: Adult cm10 ED Course: 19:05 Patient arrived in ED. mr 19:21 Triage completed. cm10 19:22 Naveen Casey PA is PHCP. cp 19:22 Naveen Alvarado MD is Attending Physician. cp 19:23 Arm band placed on right wrist. Patient placed in waiting room. EKG completed in cm10 triage. Results shown to MD. 19:23 EKG done, by ED staff, reviewed by Naveen BLANC. cm10 19:39 Tomasa Redding, RN is Primary Nurse. lg3 19:39 Patient has correct armband on for positive identification. Placed in gown. Bed in low lg3 position. Call light in reach. Side rails up X 1. Client placed on continuous cardiac and pulse oximetry monitoring. NIBP monitoring applied. equipment monitor phototypesetting on. Door closed. Noise minimized. Warm blanket given. Pillow given. Family accompanied patient. 19:39 Inserted saline lock: 20 gauge in right antecubital area, using aseptic technique. lg3 Blood collected. Flushed with 10 mL NS. Patient maintains SpO2 saturation greater than 95% on room air. 19:39 Initial lab(s) drawn, by me, sent to lab. lg3 19:41 Ptt, Activated Sent. lg3 19:42 XRAY Chest (1 view) In Process Unspecified. EDMS 19:42 Basic Metabolic Panel Sent. lg3 19:42 CBC with Diff Sent. lg3 19:42 LFT's Sent. lg3 19:42 Magnesium Sent. lg3 19:42 NT PRO-BNP Sent. lg3 19:42 PT-INR Sent. lg3 19:42 Troponin HS Sent. lg3 20:07 Samy Yang MD is Attending Physician. cp 21:09 CT Chest For PE Angio In Process Unspecified. EDMS 21:33 Connor Wen MD is Hospitalizing Provider. cp 23:32 No provider procedures requiring assistance completed. Patient admitted, IV remains in lg3 place. Administered Medications: 20:55 Drug: Aspirin PO Chewable Tablet 324 mg PO once; 81 mg tablets x 4 Route: PO; lg3 23:32 Follow up: Response: No adverse reaction lg3 Medication: 22:35 VIS not applicable for this client. lg3 Outcome: 21:34 Decision to Hospitalize by Provider. cp 23:32 Admitted to Med/surg accompanied by tech, via wheelchair, lg3 23:32 Condition: stable 23:32 Instructed on the need for admit, Demonstrated understanding of instructions, 23:33 Patient left the ED. lg3 Signatures: Dispatcher [employer] EDMS Ivy Hillman, Reg Reg mr Naveen Casey PA PA Tomasa Daniel, RN RN lg3 Chiquis Rodriguez, RN RN cm10
--- NOTE | 2024-07-08 21:34 | EDPHYS ---
Physician Documentation [facility] Name: Janell Davila IV Age: 64 yrs Sex: Male : 1960 Arrival Date: 07/08/2024 Time: 19:03 Bed 5 Private MD: ED Physician Samy Yang HPI: 07/08 19:30 This 64 yrs old Male presents to ER via Ambulatory with complaints of Chest Pain. cp 19:30 The patient or guardian reports chest pain that is located primarily in the anterior cp chest wall, left. Onset: today, about 1800. 19:30 The pain radiates to left back. Associated signs and symptoms: Pertinent positives: cp shortness of breath. The chest pain is described as like someone pushing on chest. Duration: The patient or guardian reports a single episode, that is now resolved. Severity of pain: in the emergency department the pain has resolved and did so earlier today. 19:30 Patient reports being recently diagnosed with DVT and that he takes prescribed Eliquis cp twice daily. Historical: - Allergies: 19:21 Lisinopril; cm10 - Home Meds: 19:21 famotidine 20 mg oral tablet [Active]; hydrochlorothiazide 25 mg Oral tablet [Active]; cm10 aspirin 81 mg Oral tablet,chewable [Active]; colestipol 1 gram oral tablet [Active]; Eliquis 5 mg oral tablet [Active]; - PMHx: 19:21 GERD; Hypertensive disorder; DVT; cm10 - PSHx: 19:21 Cholecystectomy; inguinal hernia repair; right ankle sx; cm10 - Immunization history:: Adult Immunizations up to date. - Infectious Disease History:: Denies. - Social history:: Smoking status: Patient denies any tobacco usage or history of. ROS: 19:35 Cardiovascular: Positive for chest pain, edema, Negative for palpitations, cp 19:35 Eyes: Negative for injury, pain, redness, and discharge, cp 19:35 Constitutional: Negative for body aches, chills, fever, poor PO intake, 19:35 ENT: Negative for drainage from ear(s), ear pain, sore throat, difficulty swallowing, difficulty handling secretions, 19:35 Respiratory: Positive for shortness of breath, Negative for cough, wheezing, 19:35 Abdomen/GI: Negative for abdominal pain, vomiting, diarrhea, constipation, 19:35 Back: Positive for radiated pain, 19:35 Neuro: Negative for altered mental status, dizziness, headache, syncope, near syncope, weakness, 19:35 All other systems are negative, Exam: 19:25 ECG was reviewed by the Attending Physician. cp 19:40 Constitutional: The patient appears in no acute distress, alert, awake, cp non-diaphoretic, non-toxic, well developed, well nourished, obese, 19:40 Head/Face: Normocephalic, atraumatic. cp 19:40 Eyes: Periorbital structures: appear normal, Conjunctiva: normal, no exudate, no injection, Sclera: no appreciated abnormality, Lids and lashes: appear normal, bilaterally, 19:40 ENT: External ear(s): are unremarkable, Nose: is normal, Mouth: Lips: moist, Oral mucosa: pink and intact, moist, Posterior pharynx: is normal, airway is patent, no erythema, no exudate, 19:40 Neck: ROM/movement: is normal, is supple, without pain, no range of motions limitations, 19:40 Chest/axilla: Inspection: normal, Palpation: crepitus, is not appreciated, tenderness, is not appreciated, 19:40 Cardiovascular: Rate: normal, Rhythm: regular, Edema: ankle edema, that is mild, JVD: is not appreciated, 19:40 Respiratory: the patient does not display signs of respiratory distress, Respirations: normal, no use of accessory muscles, no retractions, labored breathing, is not present, Breath sounds: are clear throughout, no decreased breath sounds, no stridor, no wheezing, 19:40 Abdomen/GI: Inspection: abdomen appears normal, Palpation: abdomen is soft and non-tender, in all quadrants, 19:40 Back: CVA tenderness, is absent, vertebral tenderness, is not appreciated, 19:40 Neuro: Orientation: to person, place \T\ time. Mentation: is normal, Cerebellar function: is grossly normal, Motor: moves all fours, strength is normal, Sensation: is normal, Vital Signs: 19:18 BP 137 / 91; Pulse 82; Resp 18; Temp 98.3(TE); Pulse Ox 96% on R/A; Weight 117.93 kg; cm10 Height 6 ft. 0 in. ; Pain 3/10; 21:29 BP 135 / 93; Pulse 73; Resp 16 S; Pulse Ox 97% on R/A; lg3 22:35 BP 134 / 88; Pulse 68; Resp 17 S; Pulse Ox 97% on R/A; lg3 19:18 Body Mass Index 35.26 (117.93 kg, 182.88 cm) cm10 19:18 Pain Scale: Adult cm10 MDM: 19:22 Medical Screening Exam initiated cp 21:40 Data reviewed: vital signs, nurses notes, lab test result(s), EKG, radiologic studies, cp CT scan, plain films, and as a result, I will admit patient. 21:40 Differential diagnosis: acute myocardial infarction, acute pericarditis, pancreatitis, cp pleurisy, pneumonia, pneumothorax, pulmonary embolus, stable angina, thoracic aortic disection, unstable angina. The patient was given aspirin in the Emergency Department. Management of patient was discussed with the following: Hospitalist: DR Wen will admit after discussion. I considered the following discharge prescriptions or medication management in the emergency department Medications were administered in the Emergency Department. See MAR. Independent interpretation of the following test(s) in the Emergency Department EKG: See my EKG interpretation above. Care significantly affected by the following chronic conditions: Hypertension, Obesity. Response to treatment: the patient's symptoms have mildly improved after treatment. 07/08 19:27 Order name: Basic Metabolic Panel; Complete Time: 20:30 cp 07/08 20:30 Interpretation: Normal except: GLUC 141; CRE 1.47; GFR 52. cp 07/08 19:27 Order name: CBC with Diff; Complete Time: 20:30 cp 07/08 19:27 Order name: LFT's; Complete Time: 20:30 cp 07/08 19:27 Order name: Magnesium; Complete Time: 20:30 cp 07/08 19:27 Order name: NT PRO-BNP; Complete Time: 20:30 cp 07/08 19:27 Order name: PT-INR; Complete Time: 20:30 cp 07/08 19:27 Order name: Troponin HS; Complete Time: 20:30 cp 07/08 20:30 Interpretation: Reviewed. cp 07/08 19:27 Order name: Ptt, Activated; Complete Time: 20:30 cp 07/08 22:06 Order name: Urinalysis w/ reflexes EDMS 07/08 22:06 Order name: CBC with Automated Diff EDID 07/08 22:06 Order name: CBC with Automated Diff EDID 07/08 22:06 Order name: Comprehensive Metabolic Panel EDID 07/08 22:06 Order name: Comprehensive Metabolic Panel EDID 07/08 22:06 Order name: Troponin High Sensitivity EDID 07/08 22:06 Order name: Troponin High Sensitivity EDID 07/08 22:06 Order name: Troponin High Sensitivity EDID 07/08 22:06 Order name: Troponin High Sensitivity EDID 07/08 19:27 Order name: XRAY Chest (1 view); Complete Time: 20:30 cp 07/08 20:07 Order name: CT Chest For PE Angio; Complete Time: 21:22 cp 07/08 21:22 Interpretation: Report reviewed. 07/08 22:06 Order name: Echo with Doppler EDID 07/08 19:27 Order name: EKG; Complete Time: 19:28 cp 07/08 22:06 Order name: CONS Physician Consult EDID 07/08 19:27 Order name: Cardiac monitoring; Complete Time: 19:42 cp 07/08 19:27 Order name: EKG - Nurse/Tech; Complete Time: 19:42 cp 07/08 19:27 Order name: IV Saline Lock; Complete Time: 19:42 cp 07/08 19:27 Order name: Labs collected and sent; Complete Time: 19:42 cp 07/08 19:27 Order name: O2 Per Protocol; Complete Time: 19:42 cp 07/08 19:27 Order name: O2 Sat Monitoring; Complete Time: 19:42 cp EC:25 Rate is 81 beats/min. Rhythm is regular. CO interval is normal. QRS interval is normal. cp QT interval is normal. T waves are Inverted in lead aVR. Interpreted by me. Reviewed by me. Administered Medications: 20:55 Drug: Aspirin PO Chewable Tablet 324 mg PO once; 81 mg tablets x 4 Route: PO; lg3 23:32 Follow up: Response: No adverse reaction lg3 Disposition: 07/09 20:29 Co-signature as Attending Physician, Samy Yang MD I agree with the assessment sp4 and plan of care. I reviewed the patient's care provided by the Advanced Practice Provider and agree with the diagnosis and treatment plan. Disposition Summary: 07/08/24 21:34 Hospitalization Ordered Notes: Hospitalization Status: Observation cp Provider: Connor Wen cp Location: Telemetry/MedSurg (observation) cp Condition: Stable cp Problem: new cp Symptoms: have improved cp Bed/Room Type: Standard cp Room Assignment: 204(07/08/24 22:18) vk Diagnosis - Chest pain, unspecified cp Forms: - Medication Reconciliation Form cp - SBAR form cp - Leadership Thank You Letter cp Signatures: Dispatcher [employer] EDNaveen Wheatley PA PA cp Able, Lacie RN RN lg3 Samy Yang MD MD sp4 Chiquis Rodriguez RN RN cm10 Destinee Sorensen Corrections: (The following items were deleted from the chart) 07/08 22:18 21:34 cp vk
--- NOTE | 2024-07-08 22:00 | P.HP ---
Certification for Inpatient Patient admitted to: Observation With expected LOS: <2 Midnights Practitioner: I am a practitioner with admitting privileges, knowledge of patient current condition, hospital course, and medical plan of care. Services: Services provided to patient in accordance with Admission requirements found in Title 42 Section 412.3 of the Code of Federal Regulations Patient History Date of Service: 07/08/24 Reason for admission: Chest Pain History of Present Illness: 64-year-old male with past medical history of hypertension, hyperlipidemia, history of hip surgery, recent DVT was brought to ER with chest discomfort which has been going on since this afternoon. Patient is chest pain-free at the time of interview. No fever or chills. Pain was located in retrosternal with radiation to back and left side, pressure-like feeling, not associated with any diaphoresis. Denies any shortness of breath. No nausea vomiting or diarrhea. No sick contacts. Patient was assessed in the ER and was admitted for with chest pain to rule out ACS. Patient had a CT chest PE protocol which was negative for any PE. Allergies No Known Allergies Allergy (Verified 11/22/21 09:18) Home medications list reviewed: Yes Home Medications: Aspirin [Aspirin EC 81 MG] 81 mg PO DAILY 03/17/16 Cholecalciferol (Vitamin D3) [Vitamin D3] 1,000 unit PO DAILY 03/17/16 Flaxseed Oil [Flaxseed] 1,000 mg PO DAILY 03/17/16 Multivit-Min/FA/Lycopen/Lutein [Centrum Silver Tablet] 1 each PO DAILY 03/17/16 Vitamin B Complex [B Complex] 1 each PO DAILY 03/17/16 Amlodipine Besylate [Norvasc] 2.5 mg PO DAILY 11/22/21 Ascorbic Acid [Vitamin C] 1,000 mg PO BID 11/22/21 Famotidine [Pepcid] 20 mg PO BEDTIME 11/22/21 Loratadine [Claritin] 10 mg PO DAILY 11/22/21 - Past Medical/Surgical History Past Medical History: Reviewed- Non-Contributory -: Hypertension, hyperlipidemia, DVT Past Surgical History: Reviewed- Non-Contributory -: Hip surgery - Family History Family History: Reviewed- Non-Contributory - Social History Smoking Status: Never smoker Review of Systems 10-point ROS is otherwise unremarkable Physical Examination - Vital Signs Temperature: 97.2 F Blood Pressure: 138/82 Pulse: 78 Respirations: 18 Pulse Ox (%): 94 - Physical Exam General: Alert, In no apparent distress, Oriented x3 HEENT: Atraumatic, Normocephalic Neck: Supple Respiratory: Clear to auscultation bilaterally, Normal air movement Cardiovascular: Normal pulses, Regular rate/rhythm, Normal S1 S2, Abnormal S3 Capillary refill: <2 Seconds Gastrointestinal: Soft and benign, Non-distended Musculoskeletal: No clubbing, No swelling Integumentary: No rashes Neurological: Normal speech, Normal strength at 5/5 x4 extr Lymphatics: No axilla or inguinal lymphadenopathy - Studies Laboratory Data (last 24 hrs) 07/08/24 07/08/24 07/08/24 19:37 19:37 19:37 WBC 7.70 Hgb 14.9 Hct 43.7 Plt Count 274 PT 13.3 H INR 1.19 APTT 38.0 H Sodium 136 Potassium 3.5 BUN 18 Creatinine 1.47 H Glucose 141 H Magnesium 2.1 Total Bilirubin 0.4 AST 17 ALT 27 Alkaline Phosphatase 102 Assessment and Plan - Plan Unstable Angina Will trend cardiac enzymes Will monitor telemetry Started on aspirin and statin EKG did not show any acute changes suggestive of ischemia Patient denies any chest pain at the time of interview Will get an echocardiogram Cardiology consult Hypertension Antihypertensives titrated Continue home medications and titrate as needed Hyperlipidemia Continue statin DVT Continue Eliquis CT chest negative for PE GI/DVT prophylaxis Advanced directive full code Discharge Plan: Home Plan to discharge in: 48 Hours - Advance Directives Does patient have a Living Will: No Does patient have a Durable POA for Healthcare: No - Code Status/Comfort Care Code Status: Full Code Time Spent Managing Pts Care (In Minutes): 48
[2024-07-08] MEDS ORDERED: ONDANSETRON 4 MG/2 ML VIAL IV PRN (22:01)
[2024-07-08] MEDS: NA CHLORIDE 0.9% 1,000 ML IV SCH (23:55)
[2024-07-09 00:57] VITALS: BMI 35.5
[2024-07-09 01:12] LABS: Sqamous Epithelial None Seen /HPF (None Seen); Urine Bacteria None Seen /HPF (<20); Urine Bilirubin NEGATIVE (Negative); Urine Blood Negative (Negative); Urine Clarity Clear (Clear); Urine Color Yellow (Yellow); Urine Culture Reflex Order NOT NEEDED; Urine Glucose NEGATIVE (Negative); Urine Ketones NEGATIVE (Negative); Urine Microscopic Reflex YN ORDER UMIC; Urine Mucus Slight /HPF (None Seen); Urine Nitrite NEGATIVE (Negative); Urine Protein TRACE (Negative); Urine RBC <5 /HPF (None Seen); Urine Urobilinogen Normal (Normal); Urine WBC <5 /HPF (<5)
[2024-07-09 01:16] LABS: Specific Gravity > 1.030 (1.005-1.030)
[2024-07-09 05:42] LABS: Absolute Eosinophils 0.1 K/uL (0-0.5); Absolute Lymphocytes (CBC) 2.3 K/uL (0.7-4.9); Absolute Monocytes 0.7 K/uL (0.1-1.3); Absolute Neutrophil 4.1 K/uL (1.8-8.0); Basophils % 0.2 % (0-1.3); Hematocrit 42.6 % (39.6-49.0); Hemoglobin 14.4 g/dL (13.6-17.9); Lymphocytes % 31.9 % (15.3-44.8); MCH 28.1 pg (27.0-35.0); MCHC 33.8 g/dL (32.0-36.0); MCV 83.2 fL (80-100); MPV 7.7 fL (7.6-11.3); Monocytes % 9.4 % (3.3-12.3); Neutrophils % 56.5 % (41.7-73.7); Platelets 257 thou/uL (152-406); RBC Red Blood Cell Count 5.12 M/uL (4.33-5.43)
[2024-07-09 05:54] LABS: Albumin 3.4 g/dL (3.4-5.0); Albumin/Globulin Ratio 0.9 (1.1-1.8); Anion Gap 6.8 mEq/L (5.0-15.0); Bilirubin Total 0.5 mg/dL (0.2-1.0); Globulin 3.7 g/dL (2.3-3.5); Potassium 3.8 mEq/L (3.5-5.1); Protein, Total 7.1 g/dL (6.4-8.2)
[2024-07-09 08:44] VITALS: O2SAT 94
[2024-07-09] MEDS: ASPIRIN EC 81 MG TAB PO SCH (08:48)
[2024-07-09] MEDS: POTASSIUM CL SA 10 MEQ TAB PO ONE (08:49)
[2024-07-09] MEDS: AMLODIPINE 2.5 MG TAB PO SCH (08:49)
[2024-07-09] MEDS: ACETAMINOPHEN 325 MG TABLET PO PRN (09:40)
--- NOTE | 2024-07-09 11:44 | P.CNS ---
Date of Consult: 07/09/24 Chief Complaint: Chest Pain History of Present Illness: Patient with PMH of HTN, DVT presented with chest pain, mid chest that started last night, no radiation, lasted for one hour, denies any other cardiac symptoms. Allergies lisinopril Adverse Reaction (Verified 07/09/24 00:45) Shortness of breath Home medications list reviewed: Yes Home Medications: Aspirin [Aspirin EC 81 MG] 81 mg PO DAILY 03/17/16 Cholecalciferol (Vitamin D3) [Vitamin D3] 1,000 unit PO DAILY 03/17/16 Flaxseed Oil [Flaxseed] 1,000 mg PO DAILY 03/17/16 Multivit-Min/FA/Lycopen/Lutein [Centrum Silver Tablet] 1 each PO DAILY 03/17/16 Vitamin B Complex [B Complex] 1 each PO DAILY 03/17/16 Amlodipine Besylate [Norvasc] 2.5 mg PO DAILY 11/22/21 Ascorbic Acid [Vitamin C] 1,000 mg PO BID 11/22/21 Famotidine [Pepcid] 20 mg PO BEDTIME 11/22/21 Loratadine [Claritin] 10 mg PO DAILY 11/22/21 - Past Medical/Surgical History Diabetic: No -: Hypertension, DVT -: Hip surgery -: ankle sx -: cholecystectomy - Social History Alcohol use: No CD- Drugs: No Caffeine use: No Place of Residence: Home Review of Systems 10-point ROS is otherwise unremarkable Physical Examination Temp Pulse Resp BP Pulse Ox 97.6 F 68 17 112/63 94 07/09/24 08:00 07/09/24 08:00 07/09/24 08:00 07/09/24 08:49 07/09/24 08:00 General: Alert, In no apparent distress HEENT: Atraumatic, PERRLA, Mucous membr. moist/pink, EOMI, Sclerae nonicteric Neck: Supple, 2+ carotid pulse no bruit, No LAD, Without JVD or thyroid abnormality Respiratory: Clear to auscultation bilaterally, Normal air movement Cardiovascular: Regular rate/rhythm, Normal S1 S2 Gastrointestinal: Normal bowel sounds, No tenderness Musculoskeletal: No tenderness Integumentary: No rashes Neurological: Normal gait, Normal speech, Normal tone, Normal affect Lymphatics: No axilla or inguinal lymphadenopathy Laboratory Data (last 24 hrs) 07/08/24 07/08/24 07/08/24 19:37 19:37 19:37 WBC 7.70 Hgb 14.9 Hct 43.7 Plt Count 274 PT 13.3 H INR 1.19 APTT 38.0 H Sodium 136 Potassium 3.5 BUN 18 Creatinine 1.47 H Glucose 141 H Magnesium 2.1 Total Bilirubin 0.4 AST 17 ALT 27 Alkaline Phosphatase 102 - Problems (1) Chest pain Current Visit: Yes Status: Acute Plan: EKG is normal, Troponin x3 are negative. - ASA 81 mg daily - Lipitor 40 mg daily - No further inpatient cardiac work up needed. - will schedule patient for outpatient stress test. (2) HTN (hypertension) Current Visit: Yes Status: Acute Plan: Continue Norvasc. (3) DVT (deep venous thrombosis) Current Visit: Yes Status: Acute Plan: -Continue Eliquis 5 mg po BID - outpatient follow up.
[2024-07-09] MEDS: APIXABAN 5 MG TABLET PO SCH (11:55)
[2024-07-09 12:01] VITALS: BP 117/68; TEMP 98
--- NOTE | 2024-07-09 12:18 | EKG ---
Test Date: 2024-07-08 Test Time: 19:21:53 Hand Etcher Helper: ANIYA MEASUREMENT RESULTS: Intervals: Rate: 81 IA: 158 QRSD: 82 QT: 360 QTc: 418 [place]: P: 71 IA: 158 QRS: 41 T: 57 INTERPRETIVE STATEMENTS: Normal sinus rhythm Low voltage QRS Borderline ECG Compared to ECG 06/27/2024 12:40:00 Atrial premature complex(es) no longer present Electronically Signed On 07-09-24 12:16:24 [employer] by Philipp Garcia
[2024-07-09] MEDS ORDERED: ATORVASTATIN 40 MG TAB PO SCH (21:00)
[2024-07-09] MEDS ORDERED: FAMOTIDINE 20 MG TAB PO SCH (21:00)
--- NOTE | 2024-07-10 08:01 | P.DS ---
Admission Date: 07/08/24 Discharge Date: 07/09/24 Disposition: ROUTINE DISCHARGE Discharge Condition: GOOD Reason for Admission: Chest Pain Consultations: Cardiology - Dr. Garcia Brief History of Present Illness: 64 yo F, PMH: hypertension, hyperlipidemia, history of hip surgery, recent DVT Patient was brought to ER with chest discomfort which has been going on since this afternoon. Patient is chest pain-free at the time of interview. No fever or chills. Pain was located in retrosternal with radiation to back and left side, pressure-like feeling, not associated with any diaphoresis. Denies any shortness of breath. No nausea vomiting or diarrhea. No sick contacts. Patient was assessed in the ER and was admitted for with chest pain to rule out ACS. Patient had a CT chest PE protocol which was negative for any PE. Hospital Course: Problem List: Chest discomfort Hypertension Hyperlipidemia Hx DVT Physician discharge instructions: Patient presented with retrosternal chest discomfort/pressure associated with shortness of breath. Cardiac workup this hospitalization was negative including EKG, troponin x3, Chest xray, CTA chest, echocardiogram - all without acute findings.. Chest pain self-resolved shortly after arrival to ED, just prior to admission. Cardiology was consulted and recommended following up in office for outpatient stress testing. No evidence to warrant further inpatient work up. Patient does report history of acid reflux/heart burn and felt like its been reoccurring more frequently over the last few weeks, which could explain/contribute to his symptoms, but not very classic. He reports some relief with tums/pepcid at home. He was also found to have a mild LORENZO on admission with serum creatinine of 1.47 and quickly resolved within 24 hours with hydration. LORENZO secondary to dehydration. Creatinine on discharge: 1.07. Patient was feeling better back to his normal self, chest pain resolved, breathing okay on room air and was deemed stable for discharge. Medications: increase Pepcid to 40 mg Atorvastatin 40mg at bedtime Nitroglycerin sublingual as needed for chest pain continue other home medications as previously prescribed. Follow up: PCP 3-5 days Cardiology Please call to schedule / confirm appointments Physical Exam: GEN: Alert, oriented, NAD HEENT: Normal conjunctiva, sclera anicteric CV: Regular rate and rhythm, no edema Pulm: Nonlabored respirations on room air, clear bilaterally Neuro: Normal speech, normal affect Vital Signs/Physical Exam: Temp Pulse Resp BP Pulse Ox 98 F 69 16 117/68 95 07/09/24 12:00 07/09/24 12:00 07/09/24 12:00 07/09/24 12:00 07/09/24 12:00 Laboratory Data at Discharge: WBC 7.20 thou/uL (4.3-10.9) 07/09/24 05:12 Hgb 14.4 g/dL (13.6-17.9) 07/09/24 05:12 Hct 42.6 % (39.6-49.0) 07/09/24 05:12 Plt Count 257 thou/uL (152-406) 07/09/24 05:12 PT 13.3 SECONDS (9.4-12.5) H 07/08/24 19:37 INR 1.19 07/08/24 19:37 APTT 38.0 SECONDS (24.3-36.9) H 07/08/24 19:37 Sodium 139 mEq/L (136-145) 07/09/24 05:12 Potassium 3.8 mEq/L (3.5-5.1) 07/09/24 05:12 BUN 17 mg/dL (7-18) 07/09/24 05:12 Creatinine 1.07 mg/dL (0.70-1.30) 07/09/24 05:12 Glucose 115 mg/dL (74-106) H 07/09/24 05:12 Magnesium 2.1 mg/dL (1.6-2.4) 07/08/24 19:37 Total Bilirubin 0.5 mg/dL (0.2-1.0) 07/09/24 05:12 AST 16 U/L (15-37) 07/09/24 05:12 ALT 26 U/L (16-61) 07/09/24 05:12 Alkaline Phosphatase 91 U/L (45-117) 07/09/24 05:12 Triglycerides 161 mg/dL (<150) H 07/09/24 05:12 Cholesterol 167 mg/dL (<200) 07/09/24 05:12 HDL Cholesterol 43 mg/dL (40-60) 07/09/24 05:12 Cholesterol/HDL Ratio 3.88 07/09/24 05:12 Home Medications: Aspirin [Aspirin EC 81 MG] 81 mg PO DAILY 03/17/16 Cholecalciferol (Vitamin D3) [Vitamin D3] 1,000 unit PO DAILY 03/17/16 Flaxseed Oil [Flaxseed] 1,000 mg PO DAILY 03/17/16 Multivit-Min/FA/Lycopen/Lutein [Centrum Silver Tablet] 1 each PO DAILY 03/17/16 Vitamin B Complex [B Complex] 1 each PO DAILY 03/17/16 Amlodipine Besylate [Norvasc] 2.5 mg PO DAILY 11/22/21 Ascorbic Acid [Vitamin C] 1,000 mg PO BID 11/22/21 Famotidine [Pepcid] 20 mg PO BEDTIME 11/22/21 Loratadine [Claritin] 10 mg PO DAILY 11/22/21 Atorvastatin Calcium [Lipitor] 40 mg PO BEDTIME 30 Days #30 tab 07/09/24 Nitroglycerin [Nitrostat] 0.3 mg SL SEECOM 30 Days #30 tab 07/09/24 New Medications: Atorvastatin Calcium [Lipitor] 40 mg PO BEDTIME 30 Days #30 tab Nitroglycerin [Nitrostat] 0.3 mg SL SEECOM 30 Days #30 tab Physician Discharge Instructions: Physician discharge instructions: Patient presented with retrosternal chest discomfort/pressure associated with shortness of breath. Cardiac workup this hospitalization was negative including EKG, troponin x3, Chest xray, CTA chest, echocardiogram - all without acute findings.. Chest pain self-resolved shortly after arrival to ED, just prior to admission. Cardiology was consulted and recommended following up in office for outpatient stress testing. No evidence to warrant further inpatient work up. Patient does report history of acid reflux/heart burn and felt like its been reoccurring more frequently over the last few weeks, which could explain/contribute to his symptoms, but not very classic. He reports some relief with tums/pepcid at home. He was also found to have a mild LORENZO on admission with serum creatinine of 1.47 and quickly resolved within 24 hours with hydration. LORENZO secondary to dehydration. Creatinine on discharge: 1.07. Patient was feeling better back to his normal self, chest pain resolved, breathing okay on room air and was deemed stable for discharge. Medications: increase Pepcid to 40 mg Atorvastatin 40mg at bedtime Nitroglycerin sublingual as needed for chest pain continue other home medications as previously prescribed. Follow up: PCP 3-5 days Cardiology Please call to schedule / confirm appointments Followup: Hayden Villa DO [Primary Care Provider] - 1-2 Weeks Time spent managing pt's care (in minutes): 45
--- NOTE | 2024-07-10 08:53 | ECHO ---
HEIGHT: 6 ft 0 in WEIGHT: 262 lb 0 oz DATE OF STUDY: 07/09/[address]: Darryl Wen DO 2-DIMENSIONAL: YES M.MODE: YES DOPPLER: YES COLOR FLOW: YES TDS: NO PORTABLE: YES DEFINITY: NO BUBBLE STUDY: NO DIAGNOSIS: CHEST PAIN CARDIAC HISTORY: CATHERIZATION: NO SURGERY: NO PROSTHETIC VALVE: NO PACEMAKER: NO MEASUREMENTS (cm) DIASTOLIC (NORMALS) SYSTOLIC (NORMALS) IVSd 1.1 (0.6-1.2) LA Diam 2.5 (1.9-4.0) LVEF 60-65% LVIDd 4.3 (3.5-5.7) LVIDs 2.9 (2.0-3.5) %FS 32% LVPWd 1.1 (0.6-1.2) Ao Diam 2.7 (2.0-3.7) 2 DIMENSIONAL ASSESSMENT: RIGHT ATRIUM: NORMAL LEFT ATRIUM: NORMAL RIGHT VENTRICLE: NORMAL LEFT VENTRICLE: NORMAL TRICUSPID VALVE: NORMAL MITRAL VALVE: NORMAL PULMONIC VALVE: NORMAL AORTIC VALVE: NORMAL PERICARDIAL EFFUSION: NONE AORTIC ROOT: NORMAL LEFT VENTRICULAR WALL MOTION: NORMAL. DOPPLER/COLOR FLOW: GRADE I DIASTOLIC DYSFUNCTION. COMMENTS: 1. NORMAL LEFT VENTRICULAR SYSTOLIC FUNCTION. LEFT VENTRICULAR EJECTION FRACTION 60-65%. NORMAL WALL MOTION. 2. GRADE I DIASTOLIC DYSFUNCTION. TECHNOLOGIST: KIARA HENRIQUEZ
== END 2024-07-09 14:12 | disposition home or self-care (01) ==
LOC: ER 19:03 → ERHOLD 22:01 → 2ND 22:40
PROVIDERS: ADMIT Family Medicine; ATTEND Hospitalist
DX: R07.9 Chest pain, unspecified (principal); R06.02 Shortness of breath; E86.0 Dehydration; N17.9 Acute kidney failure, unspecified; I10 Essential (primary) hypertension; E78.5 Hyperlipidemia, unspecified; K21.9 Gastro-esophageal reflux disease without esophagitis; Z86.718 Personal history of other venous thrombosis and embolism; Z79.01 Long term (current) use of anticoagulants
CPT/HCPCS: 93005; 93306; 85025 ×2; 81001; 80048; 36415; 83735; 85610; 80061; 80076; 85730; 83036; 84484 ×3; 80053; 83880; 71275; 71045; 94760 ×2; Q9967; J7030; 99285; G0378